=== PATIENT | female | born 1980 | race Caucasian/White ===

== ENCOUNTER → 2016-10-03 | Outpatient (CLI) | payer OTHER ==
--- NOTE | 2016-10-03 12:50 | MR ---
EXAMINATION TYPE: MR shoulder LT wo con DATE OF EXAM: 10/03/2016 12:04 PM COMPARISON: NONE HISTORY: RCT, left shoulder pain since injury on 06/16/16. TECHNIQUE: Multiplanar multispin echo imaging of the left shoulder was performed. FINDINGS: Rotator cuff : There is no complete or bursal/articular sided partial rotator cuff tear. The subscapu des constituent of the rotator cuff is intact. Mild heterogeneity of the supraspinatus tendon jero tible with chronic tendinopathy. Bursa: No bursal effusion or thickening is seen. Musculature: There is no muscular tear, contusion, or atrophy. Acromioclavicular joint : There are mild degenerative changes of the acromioclavicular joint. There is no anterior or lateral acromial downsloping. Osseous structures : There are no fractures or regions of abnormal bone marrow signal intensity. Long biceps tendon : The biceps tendon is normally situated within the bicipital groove. No complete or partial biceps tendon tear is present. Glenohumeral Joint fluid : There is no glenohumeral joint effusion. Cartilage and Bone : No focal hyaline cartilage defects are noted. No Hill-Sachs, reverse Hill-Sachs, or bony Bankart lesions are seen. Labrum : There are no SLAP or soft tissue Bankart lesions. No paralabral cysts are seen. OTHER FINDINGS : none IMPRESSION: 1. Mild chronic tendinopathy of the supraspinatus tendon.
== END | disposition home or self-care (01) ==
LOC: RADMRIMAIN 11:27
PROVIDERS: ATTEND Orthopaedic Surgery
DX: M75.82 Other shoulder lesions, left shoulder (principal)

== ENCOUNTER 2023-01-01 06:48 | Day surgery (SDC) | payer OTHER ==
[2023-01-01] MEDS ORDERED: LACTATED RINGERS 1,000 ML IV SCH (07:11)
[2023-01-01 07:24] VITALS: TEMP 97.7
[2023-01-01 07:29] LABS: Glucose,Whole Blood 263 mg/dL (70-110)
[2023-01-01] MEDS ORDERED: PROPOFOL 10 MG/ML 20 ML VIAL IV ONE (07:30)
[2023-01-01 07:52] VITALS: RESP 16
[2023-01-01 08:00] LABS: Glucose,Whole Blood 283 mg/dL (70-110)
[2023-01-01 08:14] VITALS: BP 119/68; PULSE 88
--- NOTE | 2023-01-01 08:24 | P.GSHP ---
History of Present Illness H&P Date: 01/01/23 CHIEF COMPLAINT: GERD HISTORY OF PRESENT ILLNESS: The patient is a 42-year-old female who presents reports gastroesophageal reflux disease. Upper endoscopy was offered for further evaluation and management. PAST MEDICAL HISTORY: Please see list. PAST SURGICAL HISTORY: Please see list. MEDICATIONS: Please see list. ALLERGIES: Please see list. SOCIAL HISTORY: No illicit drug use FAMILY HISTORY: No reports of Crohn disease or ulcerative colitis. REVIEW OF ORGAN SYSTEMS: CONSTITUTIONAL: No reports of fevers or chills. GI: Denies any blood in stools or constipation. PHYSICAL EXAM: VITAL SIGNS: Stable GENERAL: Well-developed and pleasant in no acute distress. HEENT: No scleral icterus. Extraocular movements grossly intact. Moist buccal mucosa. NECK: Supple without lymphadenopathy. CHEST: Unlabored respirations. Equal bilateral excursions. CARDIOVASCULAR: Regular rate and rhythm. Distal 2+ pulses. ABDOMEN: Soft, nondistended. MUSCULOSKELETAL: No clubbing, cyanosis, or edema. ASSESSMENT: 1. Gastroesophageal reflux disease PLAN: 1. Recommend proceeding with an upper endoscopy Past Medical History Past Medical History: Diabetes Mellitus, GERD/Reflux, Hypertension History of Any Multi-Drug Resistant Organisms: None Reported Past Surgical History: Section, Cholecystectomy, Hysterectomy Additional Past Surgical History / Comment(s): x 2 partial hysterectomy Past Anesthesia/Blood Transfusion Reactions: No Reported Reaction Smoking Status: Never smoker Medications and Allergies Home Medications Medication Instructions Recorded Confirmed Type Atorvastatin [Lipitor] 20 mg PO DAILY 10/25/22 12/26/22 History DULoxetine HCL [Cymbalta] 90 mg PO DAILY 10/25/22 12/26/22 History Empagliflozin [Jardiance] 25 mg PO DAILY 10/25/22 12/26/22 History Lisinopril-Hctz 20-25 mg 1 tab PO DAILY 10/25/22 12/26/22 History [Zestoretic 20-25] Omeprazole [PriLOSEC] 20 mg PO DAILY 10/25/22 12/26/22 History metFORMIN HCL 500 mg PO BID 10/25/22 12/26/22 History sitaGLIPtin [Januvia] 100 mg PO DAILY 10/25/22 12/26/22 History Liraglutide [Saxenda] 3 mg SQ DAILY 12/26/22 12/26/22 History Metoclopramide [Reglan] 10 mg PO ACHS #30 tab 04/17/23 Rx Allergies Allergy/AdvReac Type Severity Reaction Status Date / Time Penicillins Allergy Rash/Hives Verified 01/01/23 07:11 Surgical - Exam Vital Signs Temp Pulse Resp BP Pulse Ox 97.7 F 92 18 136/64 98 01/01/23 07:20 01/01/23 07:20 01/01/23 07:20 01/01/23 07:20 01/01/23 07:20 Results - Labs Abnormal Lab Results - Last 24 Hours (Table) 01/01/23 01/01/23 Range/Units 07:27 07:58 POC Glucose (mg/dL) 263 H 283 H (70-110) mg/dL
--- NOTE | 2023-01-01 08:26 | P.PCN ---
Date of Procedure: 01/01/23 Description of Procedure: PREOPERATIVE DIAGNOSIS: Gastroesophageal reflux disease. Morbid obesity. POSTOPERATIVE DIAGNOSIS: Gastroesophageal reflux disease. Morbid obesity. Gastritis. Gastroparesis OPERATION: Esophagogastroduodenoscopy with biopsies along antrum. SURGEON: Lakisha Houser MD ANESTHESIA: MAC. INDICATIONS: The patient is a 42-year-old female who presents with reflux disease. Benefits and risks of the procedure were described. Informed consent was obtained. DESCRIPTION: The patient was brought into the endoscopy suite and laid in the left lateral decubitus position. An Olympus gastroscope was passed along the posterior oropharynx down to the distal esophagus where the squamocolumnar junction was encountered at 37 cm from the incisors. The stomach was entered and no bile reflux was found. Additional findings are listed below. Biopsies with cold forceps were obtained of the antrum. The first through third portion of the duodenum was examined moderate food was identified throughout the stomach prohibiting view of the valve. The stomach was desufflated. The patient mitch ated the procedure well. FINDINGS: Squamocolumnar junction 37 cm from the incisors. Diaphragmatic hiatus at 38 cm. Hiatal hernia, 1 cm Hill grade -- lower esophageal valve, unable to obtain due to moderate food within the stomach Features of gastroparesis LA grade B erosive esophagitis. No active duodenitis. Chronic gastritis with biopsies obtained RECOMMENDATIONS: Upper endoscopy as needed. Gastroparesis in the presence of diabetes Reglan 10 mg 3 times daily Plan - Discharge Summary Discharge Rx Participant: No New Discharge Prescriptions: New Metoclopramide [Reglan] 10 mg PO ACHS #30 tab Continue sitaGLIPtin [Januvia] 100 mg PO DAILY Omeprazole [PriLOSEC] 20 mg PO DAILY DULoxetine HCL [Cymbalta] 90 mg PO DAILY Liraglutide [Saxenda] 3 mg SQ DAILY metFORMIN HCL 500 mg PO BID Lisinopril-Hctz 20-25 mg [Zestoretic 20-25] 1 tab PO DAILY Empagliflozin [Jardiance] 25 mg PO DAILY Atorvastatin [Lipitor] 20 mg PO DAILY Discharge Medication List Atorvastatin [Lipitor] 20 mg PO DAILY 10/25/22 [History] DULoxetine HCL [Cymbalta] 90 mg PO DAILY 10/25/22 [History] Empagliflozin [Jardiance] 25 mg PO DAILY 10/25/22 [History] Lisinopril-Hctz 20-25 mg [Zestoretic 20-25] 1 tab PO DAILY 10/25/22 [History] Omeprazole [PriLOSEC] 20 mg PO DAILY 10/25/22 [History] metFORMIN HCL 500 mg PO BID 10/25/22 [History] sitaGLIPtin [Januvia] 100 mg PO DAILY 10/25/22 [History] Liraglutide [Saxenda] 3 mg SQ DAILY 12/26/22 [History] Metoclopramide [Reglan] 10 mg PO ACHS #30 tab 01/01/23 [Rx] Follow up Appointment(s[facility] [place] [facility] - [facility] Patient Instructions/Handouts: *Surgery [facility] - (Anesthesia) Endoscopy Discharge Instructions, Gastroparesis (GEN) Discharge Disposition: HOME SELF-CARE
== END 2023-01-01 08:34 | disposition home or self-care (01) ==
LOC: ORWHC2ENDO 06:48
PROVIDERS: ATTEND Surgery Plastic and Reconstructive Surgery
DX: K21.9 Gastro-esophageal reflux disease without esophagitis (principal); K29.50 Unspecified chronic gastritis without bleeding; I10 Essential (primary) hypertension; E66.01 Morbid (severe) obesity due to excess calories; K31.84 Gastroparesis; K44.9 Diaphragmatic hernia without obstruction or gangrene; E11.9 Type 2 diabetes mellitus without complications; Z79.84 Long term (current) use of oral hypoglycemic drugs; Z79.899 Other long term (current) drug therapy; Z98.891 History of uterine scar from previous surgery; Z90.49 Acquired absence of other specified parts of digestive tract; Z90.710 Acquired absence of both cervix and uterus; Z88.0 Allergy status to penicillin; Z68.30 Body mass index [BMI] 30.0-30.9, adult
CPT/HCPCS: 88305; 43239; J2704

== ENCOUNTER → 2023-01-17 | Outpatient (CLI) | payer OTHER ==
[2023-01-17 14:13] LABS: INR 0.9 (<1.2); Partial Thromboplastin Time 24.8 sec (22.0-30.0); Prothrombin Time 9.7 sec (9.0-12.0)
[2023-01-17 20:03] LABS: HCT 44.2 % (37.2-46.3); HGB 14.8 g/dL (12.0-15.0); MCHC 33.5 g/dL (32.0-37.0); MCV 83.6 fL (80.0-97.0); Mean Platelet Volume 10.1 fL (9.5-12.2); NRBC Per 100 WBC 0 /100 WBCS (0.0-0.0); Platelet Count 383 X 10*3/uL (140-440); RBC 5.29 X 10*6/uL (4.10-5.20); RDW 13.2 % (11.5-14.5); WBC 11.03 X 10*3/uL (4.50-10.00)
[2023-01-17 20:48] LABS: % Iron Saturation 11.85 (12.00-45.00); ALT 23 U/L (8-44); AST 14 U/L (13-35); African American GFR (CKD) 78.4 (60.0-200.0); Albumin 4.6 g/dL (3.8-4.9); Albumin/Globulin Ratio 1.63 (1.60-3.17); Alkaline Phosphatase 138 U/L (41-126); BUN/Creat Ratio 15.05 Ratio (12.00-20.00); Blood Urea Nitrogen 15.2 mg/dL (9.0-27.0); Calcium 9.9 mg/dL (8.7-10.3); Carbon Dioxide 22.7 mmol/L (20.0-27.5); Chloride 95 mmol/L (96-109); Ferritin 51.6 ng/mL (10.0-291.0); Globulin 2.8 g/dL (1.6-3.3); Glucose 299 mg/dL (70-110); Iron 55 ug/dL (50-170); Magnesium 2.1 mg/dL (1.5-2.4); Non-African American GFR(CKD) 67.6 (60.0-200.0); Phosphorus 3.2 mg/dL (2.4-5.1); Potassium 3.8 mmol/L (3.5-5.5); Sodium 135 mmol/L (135-145); Total Iron Binding Capacity 463 ug/dL (228-460); Total Protein 7.3 g/dL (6.2-8.2)
[2023-01-17 23:10] LABS: Chol/HDL Ratio 4.26 Ratio; LDL Cholesterol,Calculated 79.4 mg/dL (0.0-131.0); Prealbumin 29.3 mg/dL (18.0-42.0)
[2023-01-18 02:47] LABS: Urine Alcohol Negative (Negative); Urine Barbiturate Negative (Negative); Urine Cocaine Negative (Negative); Urine Methadone Negative (Negative); Urine Opiates Negative (Negative); Urine Phencyclidine Negative (Negative)
[2023-01-19 07:26] LABS: Zinc, Serum 67 ug/dL (60-130)
== END | disposition home or self-care (01) ==
LOC: LABWHC1 12:18
PROVIDERS: ATTEND Surgery Plastic and Reconstructive Surgery
DX: E66.01 Morbid (severe) obesity due to excess calories (principal); D50.8 Other iron deficiency anemias; K91.2 Postsurgical malabsorption, not elsewhere classified; E89.1 Postprocedural hypoinsulinemia; E44.0 Moderate protein-calorie malnutrition; E44.1 Mild protein-calorie malnutrition; E45 Retarded development following protein-calorie malnutrition; E55.9 Vitamin D deficiency, unspecified; K74.1 Hepatic sclerosis; N19 Unspecified kidney failure; Z71.51 Drug abuse counseling and surveillance of drug abuser; T56.894A Toxic effect of other metals, undetermined, initial encounter; K50.90 Crohn's disease, unspecified, without complications
CPT/HCPCS: 84255; 84134; 84425; 80061; 80053; 82607; 82728; 82525; 82746; 83540; 83550; 83735; 84100; 84443; 84590; 84630; 85027; 85610; 85730; 82306; 80306; 83970; 83036; 93005; 36415; G0480; 80323

== ENCOUNTER → 2023-01-17 | Outpatient (CLI) | payer OTHER ==
[2023-01-17 13:55] VITALS: BP 122/82; PULSE 98; TEMP 98.1; BMI 43.6
--- NOTE | 2023-01-17 14:13 | P.BASOAP ---
Subjective Progress Note Date: 01/17/23 She is pending psych. She needs PCP letter. She is pending labs. Upper scope completed. Results reviewed. She has javier cruz. Objective - Vital Signs Vital signs: Vital Signs Temp 98.1 F 01/17/23 13:51 Pulse 98 01/17/23 13:51 Resp BP 122/82 01/17/23 13:51 Pulse Ox FiO2 Intake & Output 01/16/23 01/17/23 01/17/23 18:59 06:59 18:59 Weight 131.995 kg Assessment/Plan Plan: Date: 01/17/23 Initial Weight: Initial BMI: Current Weight: 131.995 kg Current BMI: 43.6 Type of Surgery: Total Volume in Band: Previous Volume: Volume Removed: Volume Added: Band Size:
== END ==
LOC: BARWHC3 13:21
PROVIDERS: ATTEND Surgery Plastic and Reconstructive Surgery
DX: E66.01 Morbid (severe) obesity due to excess calories (principal); Z68.41 Body mass index [BMI] 40.0-44.9, adult; Z88.0 Allergy status to penicillin; Z79.84 Long term (current) use of oral hypoglycemic drugs
CPT/HCPCS: 99211

== ENCOUNTER → 2024-01-28 | Outpatient (CLI) | payer OTHER ==
[2024-01-28 15:48] VITALS: BMI 41.9
== END ==
LOC: BARWHC3 12:59
PROVIDERS: ATTEND Surgery Plastic and Reconstructive Surgery
DX: E66.01 Morbid (severe) obesity due to excess calories (principal); Z71.3 Dietary counseling and surveillance; Z68.41 Body mass index [BMI] 40.0-44.9, adult; Z88.0 Allergy status to penicillin
CPT/HCPCS: 97804

== ENCOUNTER → 2024-02-06 | Outpatient (CLI) | payer OTHER ==
[2024-02-06 15:32] VITALS: BP 103/69; PULSE 91; RESP 16; TEMP 98.1; BMI 41.6
--- NOTE | 2024-02-06 15:34 | P.HPBAR ---
Bariatric H&P - History & Physicial H&P Date: 02/06/24 History & Physicial: Visit/CC: PRE? Patient initial contact: Initial weight: 129.983 kg Initial weight in pounds: 286.56 Height: 5 ft 8.5 in Initial BMI: 42.9 Last weight: Current weight: 126.099 kg Current weight in pounds: 278.00 Current BMI: 41.6 [place] body weight (based on NIH guidelines): 64.637 kg Excess body weight loss: 5.9% The patient is a 44 year-old F who presents for Bariatric Assessment. DATE OF SERVICE: 02/06/24 REASON FOR CONSULTATION: Morbid obesity HISTORY OF PRESENT ILLNESS: Nu Garcia is a 44-year-old female who comes with lifelong morbid obesity. She comes in looking into the sleeve gastrectomy. She is continuing with her weight loss journey. Diabetes is poorly controlled. She presents with a Hgb A1c is 9.3%. She was on saxenda for weight loss only. She is Januvia, Jardiance and Metformin still with blood sugar glucose very high. She takes insulin as well. She is pending management with resistor coater for her glycemic control. At height of 5 feet 8.5 inches, her ideal body weight is 163 pounds. She comes in 278 pounds. Her body mass index is 41.7. She is 115 pounds overweight. PAST MEDICAL HISTORY: 1. Morbid obesity due to excess calories 2. Body mass index of 41.7 3. Diabetes type 2, insulin-dependent 4. Cervical cancer 5. Gastroesophageal reflux disease 6. Hypertensive heart disease 7. Hyperlipidemia 8. Depressive disorder 9. Generalized anxiety disorder PAST SURGICAL HISTORY: 1. section 2. Hysterectomy 3. Cholecystectomy HOME MEDICATIONS: Home Medications Medication Instructions Recorded Confirmed Atorvastatin [Lipitor] 20 mg PO DAILY 10/25/22 03/19/24 DULoxetine HCL [Cymbalta] 90 mg PO DAILY 10/25/22 03/19/24 Lisinopril-Hctz 20-25 mg 1 tab PO DAILY 10/25/22 03/19/24 [Zestoretic 20-25] Omeprazole [PriLOSEC] 20 mg PO DAILY 10/25/22 03/19/24 metFORMIN HCL 500 mg PO BID 10/25/22 03/19/24 sitaGLIPtin [Januvia] 100 mg PO DAILY 10/25/22 03/19/24 ALPRAZolam [Xanax] 0.25 mg PO BID PRN 01/17/23 03/19/24 Cyclobenzaprine [Flexeril] 5 mg PO TID PRN 01/17/23 03/19/24 Insulin Glargine,Hum.rec.anlog 26 unit SQ HS 02/07/24 03/19/24 [Lantus Solostar Pen] Empagliflozin [Jardiance] 25 mg PO DAILY 02/26/24 03/19/24 Phentermine HCl 37.5 mg PO DAILY 02/26/24 03/19/24 cloNIDine HCL [Catapres] 0.1 mg PO DAILY PRN 02/26/24 03/19/24 ALLERGIES: Allergies Allergy/AdvReac Type Severity Reaction Status Date / Time Penicillins Allergy Rash/Hives Verified 03/19/24 16:26 SOCIAL HISTORY: Denies past tobacco use. FAMILY HISTORY: No family history of ulcerative colitis disease or Crohn's disease. Family history of morbid obesity. No lupus in the family. No reports of stomach or esophageal cancer. Has family history of deep venous thrombosis. REVIEW OF ORGAN SYSTEMS: CONSTITUTIONAL: At height of 5 feet 8.5 inches, her ideal body weight is 163 pounds. She comes in 278 pounds. Her body mass index is 41.7. She is 115 pounds overweight. HEENT: Denies any active troubles with vision or hearing. ENDOCRINE: Has diabetes. No hypothyroidism. CARDIOVASCULAR: Past reports of palpitations or heart attacks or chest pain. Has hypertensive heart disease. RESPIRATORY: Has daytime somnolence. Has asthma. Has chronic obstructive pulmonary disease. GASTROINTESTINAL: Denies any bright red blood per rectum. No diarrhea. No constipation. Has gastroesophageal reflux disease. GENITOURINARY: Has bladder urgency. No recent blood in urine. Past history of cervical cancer. MUSCULOSKELETAL: Has lower back pain and joint pain. Has osteoarthritis of the knees. History of bilateral lower extremity edema. NEURO: No headaches. No seizure disorders. Has neuropathy. PSYCH: Has depression. No suicidal ideation. Has generalized anxiety disorder. RHEUMATOLOGIC: No lupus. No rheumatoid arthritis. HEMATOLOGIC: Denies any abnormal bleeding or bruising. SKIN: No rash. No skin cancer. PHYSICAL EXAM: VITAL SIGNS: Height 5 foot 8.5 inches, weight 278 pounds. BMI 41.7 Vital Signs Temp 98.1 F 02/06/24 14:53 Pulse 91 02/06/24 14:53 Resp 16 02/06/24 14:53 BP 103/69 02/06/24 14:53 Pulse Ox FiO2 GENERAL: Well-developed in no acute distress. HEENT: No scleral icterus. Extraocular movements grossly intact. Hears conversational speech. No nasal drainage. NECK: Supple without lymphadenopathy. CHEST: Nonlabored respirations with equal bilateral excursions. CARDIOVASCULAR: Regular rate and regular rhythm. Distal 2+ pulses. ABDOMEN: Obese, soft, nontender, nondistended. MUSCULOSKELETAL: No clubbing, cyanosis. Gross strength 5/5 distal lower extremities. NEURO: No focal or lateralizing signs. Cranial nerves 2 through 12 grossly within normal limits. PSYCH: Appropriate affect. Alert and oriented to person, place and time. SKIN: Good skin turgor. Well perfused. ASSESSMENT: 1. Morbid obesity due to excess calories 2. Body mass index of 41.7 3. Diabetes type 2, insulin-dependent 4. Cervical cancer 5. Gastroesophageal reflux disease 6. Hypertensive heart disease 7. Hyperlipidemia 8. Depressive disorder 9. Generalized anxiety disorder PLAN: 1. Surgical options including a band, gastric bypass, sleeve gastrectomy were described in detail. 2. Recommend management with resistor coater for blood sugar glucose control. 3. Recommend a bariatric metabolic panel to evaluate for micro- including macronutrient deficiencies. 4. For history of daytime somnolence, recommend evaluation and treatment for sleep apnea. 5. Dietary surveillance and counseling was reviewed. Increased protein intake over 65 grams daily advised. 6. Will need cardiac risk assessment. 7. Recommend medical risk assessment. 8. Psych assessment per insurance guidelines. 9. Recommend upper endoscopy. 10. Recommend 12-lead EKG. 11. Will need blood sugar glucose and hemoglobin A1c less than 7.1% Thank you for this consultation. Past Medical History Past Medical History: Diabetes Mellitus, GERD/Reflux, Hypertension History of Any Multi-Drug Resistant Organisms: None Reported Past Surgical History: Section, Cholecystectomy, Hysterectomy Additional Past Surgical History / Comment(s): x 2 partial hysterectomy Past Anesthesia/Blood Transfusion Reactions: No Reported Reaction Past Psychological History: Anxiety, Bipolar, PTSD Smoking Status: Never smoker Past Alcohol Use History: Rare Past Drug Use History: None Reported Surgical - Exam Vital Signs Temp Pulse Resp BP 98.1 F 91 16 103/69 02/06/24 14:53 02/06/24 14:53 02/06/24 14:53 02/06/24 14:53 Results - Labs 02/06/24 16:00 02/06/24 16:00 Bariatric Checklist Checklist: Plan: Checklist: EGD: 1. Hiatal hernia: 2. H. Pylori: HgbA1c: Vitamin D: Smoking: Primary care physician referral: Dr. Steele Psychiatry clearance: Cardiology clearance: Sleep study: Diet journal: VTE risk score: VTE risk level: Rehab needs at discharge:
[2024-02-06 16:50] LABS: INR 0.9 (<1.2); Partial Thromboplastin Time 26.7 sec (22.0-30.0); Prothrombin Time 10.2 sec (10.0-12.5)
[2024-02-07 02:02] LABS: HCT 43.4 % (37.2-46.3); MCH 28.3 pg (27.0-32.0); MCHC 32.3 g/dL (32.0-37.0); MCV 87.7 FL (80.0-97.0); Mean Platelet Volume 10.3 FL (9.5-12.2); NRBC Per 100 WBC 0 X 10*3/uL (0.00-0.01); Platelet Count 482 X 10*3/uL (140-440); RBC 4.95 X 10*6/uL (4.10-5.20); RDW 12.9 % (11.5-14.5)
[2024-02-07 02:19] LABS: Prealbumin 25.3 mg/dL (18.0-42.0)
[2024-02-07 03:28] LABS: Chol/HDL Ratio 4.64 Ratio; Magnesium 2.2 mg/dL (1.5-2.4); Phosphorus 4.1 mg/dL (2.4-5.1)
[2024-02-07 03:29] LABS: % Iron Saturation 8.63 (12.00-45.00); ALT 20 U/L (8-44); AST 13 U/L (13-35); Albumin 4.6 g/dL (3.8-4.9); Albumin/Globulin Ratio 1.64 Ratio (1.60-3.17); Alkaline Phosphatase 133 U/L (41-126); Blood Urea Nitrogen 13.2 mg/dL (9.0-27.0); Calcium 10.2 mg/dL (8.7-10.3); Carbon Dioxide 23.8 mmol/L (21.6-31.8); Chloride 96 mmol/L (96-109); Ferritin 56.8 ng/mL (10.0-291.0); Globulin 2.8 g/dL (1.6-3.3); Glucose 139 mg/dL (70-110); Iron 36 UG/DL (50-170); LDL Cholesterol,Calculated 84.2 mg/dL (0.0-131.0); Potassium 3.8 mmol/L (3.5-5.5); Sodium 135 mmol/L (135-145); Total Bilirubin 0.5 mg/dL (0.3-1.2); Total Iron Binding Capacity 417 UG/DL (228-460); Total Protein 7.4 g/dL (6.2-8.2)
[2024-02-07 14:57] LABS: Zinc, Serum 90 ug/dL (60-130)
[2024-02-08 10:09] LABS: Vitamin A 70 ug/dL (38-106)
[2024-02-08 10:16] LABS: Vit B1(Thiamine) 74 ug/L (38-122)
[2024-02-10 08:21] LABS: Selenium 142 mcg/L (63-160)
[2024-02-12 06:25] LABS: Anabasine Urine <2.0 ng/mL (<2.0)
== END ==
LOC: BARWHC3 14:29
PROVIDERS: ATTEND Surgery Plastic and Reconstructive Surgery
DX: E66.01 Morbid (severe) obesity due to excess calories (principal); K90.89 Other intestinal malabsorption; D50.8 Other iron deficiency anemias; E55.9 Vitamin D deficiency, unspecified; K74.1 Hepatic sclerosis; N19 Unspecified kidney failure; T56.894A Toxic effect of other metals, undetermined, initial encounter; K50.90 Crohn's disease, unspecified, without complications; E11.65 Type 2 diabetes mellitus with hyperglycemia; K21.9 Gastro-esophageal reflux disease without esophagitis; I11.9 Hypertensive heart disease without heart failure; F32.A Depression, unspecified; E78.5 Hyperlipidemia, unspecified; F41.1 Generalized anxiety disorder; C53.9 Malignant neoplasm of cervix uteri, unspecified; Z79.4 Long term (current) use of insulin; Z79.84 Long term (current) use of oral hypoglycemic drugs; Z79.85 Long-term (current) use of injectable non-insulin antidiabetic drugs; Z68.41 Body mass index [BMI] 40.0-44.9, adult; Z79.899 Other long term (current) drug therapy; Z88.0 Allergy status to penicillin
CPT/HCPCS: 84255; 84134; 84425; 80061; 80053; 82607; 82728; 82525; 82746; 83540; 83550; 83735; 84100; 84443; 84590; 84630; 85027; 85610; 85730; 82306; 83970; 80307; 93005; G0480; G0463; 80323; 99211

== ENCOUNTER 2024-03-03 06:33 | Day surgery (SDC) | payer OTHER ==
[2024-03-03] MEDS: IV FLUID CONTINUATION 1,000 ML IV ONE (07:28)
[2024-03-03 07:30] LABS: Glucose,Whole Blood 169 mg/dL (70-110)
[2024-03-03] MEDS: LACTATED RINGERS 1,000 ML IV SCH (07:34)
[2024-03-03] MEDS ORDERED: PROPOFOL 10 MG/ML 20 ML VIAL IV ONE (07:35)
--- NOTE | 2024-03-03 07:36 | P.GSHP ---
History of Present Illness H&P Date: 03/03/24 CHIEF COMPLAINT: GERD HISTORY OF PRESENT ILLNESS: The patient is a 44-year-old female who presents reports gastroesophageal reflux disease. Upper endoscopy was offered for further evaluation and management. PAST MEDICAL HISTORY: Please see list. PAST SURGICAL HISTORY: Please see list. MEDICATIONS: Please see list. ALLERGIES: Please see list. SOCIAL HISTORY: No illicit drug use FAMILY HISTORY: No reports of Crohn disease or ulcerative colitis. REVIEW OF ORGAN SYSTEMS: CONSTITUTIONAL: No reports of fevers or chills. GI: Denies any blood in stools or constipation. PHYSICAL EXAM: VITAL SIGNS: Stable GENERAL: Well-developed and pleasant in no acute distress. HEENT: No scleral icterus. Extraocular movements grossly intact. Moist buccal mucosa. NECK: Supple without lymphadenopathy. CHEST: Unlabored respirations. Equal bilateral excursions. CARDIOVASCULAR: Regular rate and rhythm. Distal 2+ pulses. ABDOMEN: Soft, nondistended. MUSCULOSKELETAL: No clubbing, cyanosis, or edema. ASSESSMENT: 1. Gastroesophageal reflux disease PLAN: 1. Recommend proceeding with an upper endoscopy Past Medical History Past Medical History: Cancer, Diabetes Mellitus, GERD/Reflux, Hypertension Additional Past Medical History / Comment(s): cervical cancer History of Any Multi-Drug Resistant Organisms: None Reported Past Surgical History: Section, Cholecystectomy, Hysterectomy Additional Past Surgical History / Comment(s): x 2 partial hysterectomy Past Anesthesia/Blood Transfusion Reactions: No Reported Reaction Smoking Status: Never smoker - Past Family History Mother Family Medical History: Deep Vein Thrombosis (DVT) Medications and Allergies Home Medications Medication Instructions Recorded Confirmed Type Atorvastatin [Lipitor] 20 mg PO DAILY 10/25/22 02/26/24 History DULoxetine HCL [Cymbalta] 90 mg PO DAILY 10/25/22 03/03/24 History Empagliflozin [Jardiance] 25 mg PO DAILY 10/25/22 02/26/24 History Lisinopril-Hctz 20-25 mg 1 tab PO DAILY 10/25/22 02/26/24 History [Zestoretic 20-25] Omeprazole [PriLOSEC] 20 mg PO DAILY 10/25/22 02/26/24 History metFORMIN HCL 500 mg PO BID 10/25/22 03/03/24 History sitaGLIPtin [Januvia] 100 mg PO DAILY 10/25/22 02/26/24 History ALPRAZolam [Xanax] 0.25 mg PO BID PRN 01/17/23 02/26/24 History Cyclobenzaprine [Flexeril] 5 mg PO TID PRN 01/17/23 02/26/24 History Insulin Glargine,Hum.rec.anlog 26 unit SQ HS 02/07/24 02/26/24 History [Lantus Solostar Pen] Empagliflozin [Jardiance] 25 mg PO DAILY 02/26/24 02/26/24 History Phentermine HCl 37.5 mg PO DAILY 02/26/24 02/26/24 History cloNIDine HCL [Catapres] 0.1 mg PO DAILY PRN 02/26/24 02/26/24 History Allergies Allergy/AdvReac Type Severity Reaction Status Date / Time Penicillins Allergy Rash/Hives Verified 03/03/24 07:30 Results - Labs Abnormal Lab Results - Last 24 Hours (Table) 03/03/24 Range/Units 07:26 POC Glucose (mg/dL) 169 H (70-110) mg/dL
[2024-03-03 07:39] VITALS: TEMP 98
--- NOTE | 2024-03-03 07:51 | P.PCN ---
Date of Procedure: 03/03/24 Description of Procedure: PREOPERATIVE DIAGNOSIS: Gastroesophageal reflux disease. Morbid obesity. POSTOPERATIVE DIAGNOSIS: Gastroesophageal reflux disease. Morbid obesity. Gastritis. OPERATION: Esophagogastroduodenoscopy with biopsies along esophagus, antrum and duodenum SURGEON: Lakisha Houser MD ANESTHESIA: MAC. INDICATIONS: The patient is a 44-year-old female who presents with reflux disease. Benefits and risks of the procedure were described. Informed consent was obtained. DESCRIPTION: The patient was brought into the endoscopy suite and laid in the left lateral decubitus position. An Olympus gastroscope was passed along the posterior oropharynx down to the distal esophagus where the squamocolumnar junction was encountered at 37 cm from the incisors. The stomach was entered and no bile reflux was found. Additional findings are listed below. Biopsies with cold forceps were obtained of the antrum. The first through third portion of the duodenum was examined. Retroflexion of the scope confirmed Hill grade 2 lower esophageal valve. The squamocolumnar junction demonstrated LA grade B erosive esophagitis. The stomach was desufflated. The patient tolerated the procedure well. FINDINGS: Squamocolumnar junction 37 cm from the incisors. Diaphragmatic hiatus at 37 cm. Hill grade 2 lower esophageal valve. LA grade B erosive esophagitis. Biopsies obtained Biopsies obtained of the duodenum. Chronic gastritis with biopsies obtained. RECOMMENDATIONS: Upper endoscopy as needed. Plan - Discharge Summary Discharge Rx Participant: No New Discharge Prescriptions: Continue sitaGLIPtin [Januvia] 100 mg PO DAILY Omeprazole [PriLOSEC] 20 mg PO DAILY DULoxetine HCL [Cymbalta] 90 mg PO DAILY ALPRAZolam [Xanax] 0.25 mg PO BID PRN PRN Reason: Anxiety Insulin Glargine,Hum.rec.anlog [Lantus Solostar Pen] 26 unit SQ HS cloNIDine HCL [Catapres] 0.1 mg PO DAILY PRN PRN Reason: Anxiety Empagliflozin [Jardiance] 25 mg PO DAILY metFORMIN HCL 500 mg PO BID Lisinopril-Hctz 20-25 mg [Zestoretic 20-25] 1 tab PO DAILY Empagliflozin [Jardiance] 25 mg PO DAILY Atorvastatin [Lipitor] 20 mg PO DAILY Cyclobenzaprine [Flexeril] 5 mg PO TID PRN PRN Reason: Pain Phentermine HCl 37.5 mg PO DAILY Discharge Medication List Atorvastatin [Lipitor] 20 mg PO DAILY 10/25/22 [History] DULoxetine HCL [Cymbalta] 90 mg PO DAILY 10/25/22 [History] Empagliflozin [Jardiance] 25 mg PO DAILY 10/25/22 [History] Lisinopril-Hctz 20-25 mg [Zestoretic 20-25] 1 tab PO DAILY 10/25/22 [History] Omeprazole [PriLOSEC] 20 mg PO DAILY 10/25/22 [History] metFORMIN HCL 500 mg PO BID 10/25/22 [History] sitaGLIPtin [Januvia] 100 mg PO DAILY 10/25/22 [History] ALPRAZolam [Xanax] 0.25 mg PO BID PRN 01/17/23 [History] Cyclobenzaprine [Flexeril] 5 mg PO TID PRN 01/17/23 [History] Insulin Glargine,Hum.rec.anlog [Lantus Solostar Pen] 26 unit SQ HS 02/07/24 [History] Empagliflozin [Jardiance] 25 mg PO DAILY 02/26/24 [History] Phentermine HCl 37.5 mg PO DAILY 02/26/24 [History] cloNIDine HCL [Catapres] 0.1 mg PO DAILY PRN 02/26/24 [History] Follow up Appointment(s)/Ref[facility](s[facility] [place] [facility] - 03/19/24 Patient Instructions/Handouts: GERD (Gastroesophageal Reflux Disease) (ED), Gastritis (DC) Discharge Disposition: HOME SELF-CARE
[2024-03-03 07:55] VITALS: RESP 16
[2024-03-03 08:16] VITALS: BP 97/67; PULSE 90
== END 2024-03-03 08:47 | disposition home or self-care (01) ==
LOC: ORWHC2ENDO 06:33
PROVIDERS: ATTEND Surgery Plastic and Reconstructive Surgery
DX: K29.50 Unspecified chronic gastritis without bleeding (principal); K21.9 Gastro-esophageal reflux disease without esophagitis; I10 Essential (primary) hypertension; E66.01 Morbid (severe) obesity due to excess calories; E11.9 Type 2 diabetes mellitus without complications; Z79.84 Long term (current) use of oral hypoglycemic drugs; Z79.899 Other long term (current) drug therapy; Z85.41 Personal history of malignant neoplasm of cervix uteri; Z88.0 Allergy status to penicillin; Z90.49 Acquired absence of other specified parts of digestive tract; Z90.710 Acquired absence of both cervix and uterus
CPT/HCPCS: 88305; 43239; J2704

== ENCOUNTER → 2024-06-11 | Outpatient (CLI) | payer OTHER ==
[2024-06-11 15:30] VITALS: BP 111/72; PULSE 73; RESP 16; TEMP 98.7; BMI 41.2
--- NOTE | 2024-06-16 07:32 | P.BASOAP ---
Subjective Progress Note Date: 06/16/24 She only lost 2 pounds in 2 months. Consent for sleeve. High risk of incomplete surgery. Plan for alternative. Objective - Vital Signs Vital signs: Vital Signs Temp 98.7 F 06/11/24 15:23 Pulse 73 06/11/24 15:23 Resp 16 06/11/24 15:23 BP 111/72 06/11/24 15:23 Pulse Ox FiO2 Assessment/Plan Plan: Date: 06/11/24 Initial Weight: 129.983 kg Initial BMI: 42.9 Current Weight: 124.738 kg Current BMI: 41.2 Type of Surgery: Total Volume in Band: Previous Volume: Volume Removed: Volume Added: Band Size:
== END ==
LOC: BARWHC3 14:41
PROVIDERS: ATTEND Surgery Plastic and Reconstructive Surgery
DX: E66.01 Morbid (severe) obesity due to excess calories (principal); Z68.41 Body mass index [BMI] 40.0-44.9, adult; Z88.0 Allergy status to penicillin
CPT/HCPCS: 99211

== ENCOUNTER → 2024-06-11 | Outpatient (CLI) | payer OTHER ==
[2024-06-12 02:23] LABS: Basophils # (A) 0.05 X 10*3/uL (0.00-0.10); Basophils % (A) 0.5 %; Eosinophils # (A) 0.05 X 10*3/uL (0.04-0.35); Eosinophils % (A) 0.5 %; HGB 13.2 g/dL (12.0-15.0); Lymphocytes # (A) 1.88 X 10*3/uL (0.90-5.00); Lymphocytes % (A) 17.6 %; MCH 26.4 pg (27.0-32.0); MCHC 31.4 g/dL (32.0-37.0); Mean Platelet Volume 10.3 FL (9.5-12.2); Monocytes # (A) 0.55 X 10*3/uL (0.20-1.00); Monocytes % (A) 5.2 %; NRBC Per 100 WBC 0 X 10*3/uL (0.00-0.01); Neutrophils % (A) 75.8 %; Platelet Count 413 X 10*3/uL (140-440); RDW 14.1 % (11.5-14.5); WBC 10.67 X 10*3/uL (4.50-10.00)
== END | disposition home or self-care (01) ==
LOC: LABPAT 16:16
PROVIDERS: ATTEND Surgery Plastic and Reconstructive Surgery
DX: Z01.818 Encounter for other preprocedural examination (principal)
CPT/HCPCS: 85025; 86850; 86900; 86901

== ENCOUNTER 2024-06-16 07:45 | Inpatient (IN) | payer OTHER ==
--- NOTE | 2024-06-11 15:58 | P.BASOAP ---
Subjective Progress Note Date: 06/11/24 She only lost 2 pounds in 2 months. Consent for sleeve. High risk of incomplete surgery. Plan for alternative. Assessment/Plan Plan: Date: Initial Weight: 129.983 kg Initial BMI: Current Weight: 123.377 kg Current BMI: Type of Surgery: Total Volume in Band: Previous Volume: Volume Removed: Volume Added: Band Size:
[2024-06-16] MEDS ORDERED: ONDANSETRON 4 MG/2 ML VIAL IVP PRN (08:12)
[2024-06-16] MEDS ORDERED: LIDOCAINE 1% (10MG/ML) FOR IV START INTRADERMA PRN (08:12)
--- NOTE | 2024-06-16 08:37 | P.GSHP ---
History of Present Illness H&P Date: 06/16/24 CHIEF COMPLAINT: Morbid obesity HISTORY OF PRESENT ILLNESS: Marcio Garcia is a 44-year-old female who comes with lifelong morbid obesity. As result of morbid obesity, she has developed insulin-dependent diabetes type 2, hypertensive heart disease, obstructive sleep apnea, hyperlipidemia, osteoarthritis of the hips and knees. She has completed medical supervised weight loss. She completed medical including cardiac assessment. She has completed psychological risk assessment. All surgical opt ions were reviewed. She elected for gastric bypass. At height of 5 feet 8 inches, her ideal body weight is 163 pounds. She comes in 220 pounds. Her body mass index is 41.1. She is 109 pounds overweight. PAST MEDICAL HISTORY: 1. Morbid obesity due to excess calories 2. Body mass index of 41.4 3. Osteoarthritis of the knees. 4. Osteoarthritis of the lower back. 5. Hypertensive heart disease. 6. Gastroesophageal reflux disease 7. Hyperlipidemia 8. Obstructive sleep apnea 9. Diabetes type 2, insulin dependent 10. Depressive disorder PAST SURGICAL HISTORY: 1. Cholecystectomy 2. Hysterectomy 3. Lysis of adhesions 4. Bilateral carpal tunnel release 5. Colonoscopy 6. Upper endoscopy HOME MEDICATIONS: See list ALLERGIES: See list SOCIAL HISTORY: Past tobacco use. FAMILY HISTORY: No family history of ulcerative colitis disease or Crohn's disease. Family history of morbid obesity. No lupus in the family. No reports of stomach or esophageal cancer. REVIEW OF ORGAN SYSTEMS: CONSTITUTIONAL: At height of 5 feet 8 inches, her ideal body weight is 163 pounds. She comes in 220 pounds. Her body mass index is 41.1. She is 109 pounds overweight. HEENT: Denies any active troubles with vision or hearing. ENDOCRINE: Has diabetes. Denies hypothyroidism. CARDIOVASCULAR: Past reports of palpitations or heart attacks or chest pain. RESPIRATORY: Has daytime somnolence. GASTROINTESTINAL: Denies any bright red blood per rectum. Has gastroesophageal reflux disease. MUSCULOSKELETAL: Has lower back pain and joint pain. Has osteoarthritis of the knees. NEURO: No headaches. No seizure disorders. PSYCH: Has depression. No suicidal ideation. RHEUMATOLOGIC: No lupus. No rheumatoid arthritis. HEMATOLOGIC: Denies any abnormal bleeding or bruising. No personal history of DVTs. SKIN: Has rash. No skin cancer. PHYSICAL EXAM: VITAL SIGNS: Height 5 foot 8 inches, weight 272 pounds. BMI 41.4 GENERAL: Well-developed in no acute distress. HEENT: No scleral icterus. Extraocular movements grossly intact. Hears conversational speech. No nasal drainage. NECK: Supple without lymphadenopathy. CHEST: Nonlabored respirations with equal bilateral excursions. CARDIOVASCULAR: Regular rate and regular rhythm. Distal 2+ pulses. ABDOMEN: Obese, soft, nontender, nondistended. MUSCULOSKELETAL: No clubbing, cyanosis. NEURO: No focal or lateralizing signs. Cranial nerves 2 through 12 grossly within normal limits. PSYCH: Appropriate affect. Alert and oriented to person, place and time. SKIN: Good skin turgor. Well perfused. ASSESSMENT: 1. Morbid obesity due to excess calories 2. Body mass index of 41.4 3. Osteoarthritis of the knees. 4. Osteoarthritis of the lower back. 5. Hypertensive heart disease. 6. Gastroesophageal reflux disease 7. Hyperlipidemia 8. Obstructive sleep apnea 9. Diabetes type 2, insulin dependent 10. Depressive disorder PLAN: 1. Bariatric options between a sleeve, band and a Harman-en-Y gastric bypass were reviewed in detail. The patient elected for a sleeve gastrectomy. Robotic assisted approach described. 2. The [place] [facility] Data was also reviewed with benefits and risks as described. 3. An 8 page second-generation bariatric consent form was reviewed in detail including potential of bleeding, infection, leaks, adequate weight loss, nutritional deficiencies which the patient demonstrated understanding of the risks. 4. A 2 week high-protein low caloric 800 kcal diet described to address hepatomegaly. 5. Preoperative labs including complete metabolic panel and CBC with type and screen recommended. 6. DVT prophylaxis per [place] [facility]. 7. Antibiotic prophylaxis. 8. Inpatient hospitalization anticipated for more than 2 nights. 9. All questions and concerns were addressed with the patient. 10. She is at elevated risk for perioperative complications secondary to pre- existing diabetes type 2, obstructive sleep apnea, pre-existing coronary artery disease. 11. Overall, patient has expressed understanding of bariatric care including postoperative diet and commitment of lifestyle. Patient should benefit from surgical intervention for correction of her morbid obesity. 12. Patient advised to hit targeted weight loss of 5% of 284 pounds to 260 pounds/14 pound weight loss otherwise high risk for cancellation of her procedure discussed in detail. Past Medical History Past Medical History: Cancer, Diabetes Mellitus, GERD/Reflux, Hypertension Additional Past Medical History / Comment(s): cervical cancer History of Any Multi-Drug Resistant Organisms: None Reported Past Surgical History: Section, Cholecystectomy, Hysterectomy Additional Past Surgical History / Comment(s): x 2 partial hysterectomy Past Anesthesia/Blood Transfusion Reactions: No Reported Reaction Past Psychological History: Anxiety, Bipolar, PTSD Smoking Status: Never smoker Past Alcohol Use History: Rare Past Drug Use History: None Reported - Past Family History Mother Family Medical History: Deep Vein Thrombosis (DVT) Medications and Allergies Home Medications Medication Instructions Recorded Confirmed Type Atorvastatin [Lipitor] 20 mg PO DAILY 10/25/22 06/11/24 History DULoxetine HCL [Cymbalta] 90 mg PO DAILY 10/25/22 06/11/24 History Omeprazole [PriLOSEC] 20 mg PO DAILY 10/25/22 06/11/24 History metFORMIN HCL 500 mg PO BID 10/25/22 06/11/24 History sitaGLIPtin [Januvia] 100 mg PO DAILY 10/25/22 06/11/24 History ALPRAZolam [Xanax] 0.25 mg PO BID PRN 01/17/23 06/11/24 History Cyclobenzaprine [Flexeril] 5 mg PO TID PRN 01/17/23 06/11/24 History Insulin Glargine,Hum.rec.anlog 50 unit SQ HS 02/07/24 06/11/24 History [Lantus Solostar Pen] Empagliflozin [Jardiance] 25 mg PO DAILY 02/26/24 06/11/24 History cloNIDine HCL [Catapres] 0.1 mg PO DAILY PRN 02/26/24 06/11/24 History Lisinopril-Hctz 10-12.5 mg 1 tab PO DAILY 06/11/24 06/11/24 History [Zestoretic 10-12.5] Allergies Allergy/AdvReac Type Severity Reaction Status Date / Time Penicillins Allergy Rash/Hives Verified 03/19/24 16:26
[2024-06-16 09:46] LABS: Glucose,Whole Blood 98 mg/dL (70-110)
[2024-06-16] MEDS: ONDANSETRON 4 MG/2 ML VIAL IVP PRN (09:46)
[2024-06-16] MEDS: DEXAMETHASONE SOD PHOSPHATE 4 MG/ML 1 ML VIAL IV ONE (09:46)
[2024-06-16] MEDS: SCOPOLAMINE 1 MG/72 HR PATCH TRANSDERM ONE (09:46)
[2024-06-16] MEDS: LACTATED RINGERS 1,000 ML IV SCH (09:47)
[2024-06-16] MEDS: ACETAMINOPHEN TAB 500 MG TAB PO PRN (09:48)
[2024-06-16] MEDS: ALVIMOPAN 12 MG CAPSULE PO PRN (09:48)
[2024-06-16] MEDS: CHLORHEXIDINE GLUCONATE 15 ML CUP MUCOUS MEM STA (09:49)
[2024-06-16] MEDS: ENOXAPARIN 40 MG/0.4 ML SYRINGE SQ PRN (09:49)
[2024-06-16] MEDS: PANTOPRAZOLE 40 MG/10 ML VIAL IVP STA (09:49)
[2024-06-16] MEDS: IV FLUID CONTINUATION 1,000 ML IV ONE ×2 (10:04→15:43)
--- NOTE | 2024-06-16 11:19 | P.HPADDEND ---
H&P Addendum H&P Addendum Date: 06/16/24 Patient reports strict adherence to 2-week protein diet especially in the last 1 week. She also reports her blood sugars have been low 99. Patient discussed risk of incomplete procedure due to hepatomegaly. Patient willing to proceed with possibility of aborting procedure and rescheduling in over 30 days.
[2024-06-16] MEDS ORDERED: LIDOCAINE 1% INJ 10MG/ML (20 ML MDV) ONE (13:11)
[2024-06-16] MEDS ORDERED: fentaNYL (PF) 50 MCG/ML 2 ML AMP ONE (13:11)
[2024-06-16] MEDS ORDERED: PROPOFOL 10 MG/ML 20 ML VIAL IV ONE (13:11)
[2024-06-16] MEDS ORDERED: ROCURONIUM 10 MG/ML (5 ML VIAL) IV ONE (13:11)
[2024-06-16] MEDS ORDERED: HYDROmorphone (PF) 1 MG/ML ONE (13:11)
[2024-06-16] MEDS ORDERED: MIDAZOLAM 2 MG/2 ML VIAL ONE (13:11)
[2024-06-16] MEDS ORDERED: NEOSTIGMINE 1 MG/ML 10 ML VIAL ONE (13:11)
[2024-06-16] MEDS ORDERED: GLYCOPYRROLATE 0.2 MG/ML 2 ML VIAL ONE (13:11)
[2024-06-16] MEDS ORDERED: SUCCINYLCHOLINE CHLORIDE 200 MG/10 ML VIAL IV ONE (13:11)
[2024-06-16] MEDS: ceFAZolin 3 GM in SODIUM CHLORIDE 0.9% 100 ML IVPB PRN (13:11)
[2024-06-16] MEDS: LIDOCAINE 1%-EPI 1:100,000 20 ML VIAL SQ ONE (13:32)
[2024-06-16 14:50] VITALS: RESP 16
[2024-06-16] MEDS ORDERED: NALOXONE 0.4 MG/ML 1 ML VIAL IV PRN (14:52)
[2024-06-16] MEDS ORDERED: HYDROmorphone 1 MG/ML 1 ML SYRINGE IVP PRN (14:58)
[2024-06-16] MEDS ORDERED: DEXTROSE 50% SYRINGE 50 ML IVP PRN ×2 (14:59)
[2024-06-16] MEDS: HYDROmorphone 0.5 MG/0.5 ML SYRINGE IVP PRN (15:11)
[2024-06-16] MEDS: SCOPOLAMINE 1 MG/72 HR PATCH TRANSDERM STA (17:26)
[2024-06-16] MEDS: droPERidol 5 MG/2 ML VIAL IVP ONE (17:26)
[2024-06-16 17:28] LABS: Glucose,Whole Blood 172 mg/dL (70-110)
[2024-06-16] MEDS: ACETAMINOPHEN IV (For NPO) 1,000 MG in EMPTY BAG 1 BAG IVPB SCH (17:34)
[2024-06-16] MEDS: DEXAMETHASONE SOD PHOSPHATE 4 MG/ML 1 ML VIAL IVP SCH (17:34)
[2024-06-16] MEDS: ONDANSETRON 4 MG/2 ML VIAL IVP SCH (17:34)
[2024-06-16] MEDS: DEXAMETHASONE SOD PHOSPHATE 10 MG/ML 1 ML VIAL IVP STA (17:38)
[2024-06-16] MEDS: 0.9% NACL WITH KCL 20 MEQ/L 1,000 ML IV SCH (17:50)
[2024-06-16] MEDS: SODIUM CHLORIDE 0.9% 2,000 ML IV ONE (17:54)
[2024-06-16] MEDS ORDERED: SIMETHICONE 40 MG/0.6 ML DROPS 2,000 MG/30 ML BOTTLE PO SCH (18:00)
[2024-06-16] MEDS: ALBUTEROL NEBULIZED 2.5 MG/3 ML INHALATION SCH (18:24)
[2024-06-16] MEDS: SIMETHICONE 40 MG/0.6 ML DROPS 2,000 MG/30 ML BOTTLE PO SCH (19:02)
[2024-06-16] MEDS: INSULIN ASPART (NovoLOG) 100 UNIT/ML VIAL SQ SCH (19:02)
--- NOTE | 2024-06-16 19:50 | P.OP ---
Date of Procedure: 06/16/24 Description of Procedure: SURGEON: AMAURY THORNTON MD PREOPERATIVE DIAGNOSES: 1. Morbid obesity due to excess calories 2. Body mass index of 41.4 3. Osteoarthritis of the knees. 4. Osteoarthritis of the lower back. 5. Hypertensive heart disease. 6. Gastroesophageal reflux disease 7. Hyperlipidemia 8. Obstructive sleep apnea 9. Diabetes type 2, insulin dependent 10. Depressive disorder POSTOPERATIVE DIAGNOSES: 1. Morbid obesity due to excess calories 2. Body mass index of 41.4 3. Osteoarthritis of the knees. 4. Osteoarthritis of the lower back. 5. Hypertensive heart disease. 6. Gastroesophageal reflux disease 7. Hyperlipidemia 8. Obstructive sleep apnea 9. Diabetes type 2, insulin dependent 10. Depressive disorder OPERATION: 1. Robotic assisted daVinci Xi laparoscopic sleeve gastrectomy with 40-Portuguese bougie, multiport. 2. Intraoperative esophagogastroduodenoscopy. ANESTHESIA: Gen. local anesthetic ESTIMATED BLOOD LOSS: 10 mL SPECIMENS REMOVED: Sleeve gastrectomy COMPLICATIONS: None. FINDINGS: 1. Negative intraoperative esophagogastrojejunoscopy leak test. 2. No hepatomegaly and no large hiatus hernia. 3. Total of 7 staplers used including 1 - 60 mm green, 5 - 60 mm blue robot loads used to create the gastric sleeve. 4. Sleeve gastrectomy, 28 x 6 cm INDICATIONS: Nu Garcia is a 44-year-old female who comes with lifelong morbid obesity. As result of morbid obesity, he has developed hypertensive heart disease, obstructive sleep apnea, hyperlipidemia, osteoarthritis of the hips and knees. He has completed medical supervised weight loss. He completed medical including cardiac assessment. He has completed psychological risk assessment. All surgical options were reviewed. He elected for sleeve gastrectomy At height of 6 feet 1 inches, ideal body weight is 188 pounds. He comes in 324 pounds. His body mass index is 43.9. He is 136 pounds overweight. All surgical options for morbid obesity had been described using the [place] [facility] comorbidity resolution including complication risk score. A second-generation bariatric consent form was described in detail including the possibility of protein malnutrition, leaks, gastric stricture, venous thrombosis, gastroesophageal reflux disease, need for further surgery for which she demonstrated understanding. Benefits and risks of the procedure were described at length. Informed consent was obtained. DESCRIPTION: The patient was brought into the operating room theater. Preoperatively she had received Lovenox subcutaneously for DVT prophylaxis. Additionally she had Peridex oral solution as an oral decontaminant. After general induction, the abdomen was prepped and draped in standard sterile fashion. An Ioban draping was placed along the abdomen. A robotic da Oralia Xi system was prepped and primed. At 15 cm from the xiphoid, proposed port sites were marked with indelible marker along the anterior axillary line bilaterally, mid axillary line bilaterally with each ports were marked 10 to 15 cm from each other. The robotic stapler port was marked for the right midclavicular line. A 5 mm 0 degrees laparoscopic trocar entry was performed along the left upper quadrant. The abdomen was insufflated to 15 mmHg pressure was tolerated well. Diagnostic laparoscopy demonstrated no injury to bowel, viscera, or mesentery. No evidence of large hiatus hernia was identified. The liver edge was slightly thickened due to mild hepatomegaly despite 2-week protein diet. A 8 mm port was placed along the left upper abdominal wall after exchanging the 5 mm port. A separate 8 mm port was placed along the left lateral abdominal wal l. Please note that the ports were placed at least 20 cm away from the target anatomy. Care was taken to check each robotic arms were safely away from collision with the bed or the patient. At the epigastrium, a medium sized Martha liver retractor was placed under direct visualization with the Iron Stone Paver placed under the right shoulder of the patient. Next, 12-mm robot stapler port was placed along the right upper quadrant. The camera 8-mm port was maintained along the epigastrium. The patient was repositioned in reverse Trendelenburg position at 21-degrees after lowering the bed. The robot was docked along the left side of the patient. Using a grasper for arm 4, a vessel sealer for arm 3, including grasper for arm 1, the robotic system was docked and primed as described. Instruments were interchanged by the appeals assistant for stapler loads. The camera was placed at 30- degrees down. I had sat at the console. The pylorus was identified and 6 cm proximally along the greater curvature of the stomach, the short gastrics were mobilized upwards to the angle of His using a vessel sealer. Hemostasis was excellent during this portion of the procedure. Next, the upper pole of the stomach was adherent to the left nicolasa, which was gently dissected free using atraumatic grasper. I went to the head of the bed and placed 40-Portuguese blunt bougie into the stomach. The bougie was readjusted by the nurse kiln fireman. Robotic stapler black load 60 mm 1 followed by green 60 mm x 1, and blue 60 mm loads x 4 were used to create the sleeve. Initial firing was across the antrum of the stomach towards the angle of His. The staple line was linear without corkscrewing. The space from the angularis incisura of the sleeve was approximately 4 cm. I then went to the head of the bed to perform the intraoperative esophagogastroduodenoscopy leak test. The bougie was withdrawn. The upper pole of the stomach was bathed using normal saline solution. The scope was withdrawn with careful inspection along the staple line for which no leaks were found along the entire length. Additionally,the sleeve was completely hemostatic without any encroachment along the angularis incisura. Its topology was a soft "J". No stricture was encountered upon placement of the scope. The GI tract was desufflated. The patient tolerated this portion of the procedure well. The scope was completely withdrawn. The robot was undocked. I then rescrubbed into case, whereby the irrigation fluid was aspirated from the abdominal cavity. Tisseel fibrin sealant was placed along the entire staple length. Once dried the Martha liver retractor was removed. Attention was now brought to removal of the specimen. The distal end of the sleeve gastrectomy specimen was brought out through the 12 mm port at the left upper quadrant. The specimen was gently removed en total. No contamination had occurred during this process. All instruments and pneumoperitoneum including irrigation fluid was removed from the abdominal cavity. The 12 mm port site was closed using 0-Vicryl and Brayden Lopez and irrigated with diluted hydrogen peroxide. The final incisions were closed using subcuticular interrupted suture of 4-0 Monocryl. Exofin was applied to the skin once the skin had been cleansed. OptiFoam dressing was placed along the stomach extraction site. The sleeve specimen was measured and checked also for leaks which none were found. At the end of the procedure, needle, sponge, and instrument count was verified correct by the neurosurgical nurse practitioner. The patient was taken to the postanesthesi care unit in stable condition. The patient had tolerated the procedure well. Intraoperative films and findings were reviewed with the patient's family. Plan - Discharge Summary Discharge Rx Participant: No New Discharge Prescriptions: New bisacodyL [Dulcolax] 5 mg PO DAILY PRN #10 tab PRN Reason: Constipation Simethicone 40 mg/0.6 ml Drops [Mylicon Drops] 40 mg PO PCHS PRN #30 ml PRN Reason: Gas Omeprazole [PriLOSEC] 40 mg PO DAILY #30 cap Acetaminophen Tab [Tylenol Tab] 1,000 mg PO Q6HR PRN #30 tablet PRN Reason: Pain Ondansetron Odt [Zofran Odt] 4 mg PO Q8HR PRN #9 tab PRN Reason: Nausea Continue DULoxetine HCL [Cymbalta] 90 mg PO DAILY ALPRAZolam [Xanax] 0.25 mg PO BID PRN PRN Reason: Anxiety Empagliflozin [Jardiance] 25 mg PO DAILY metFORMIN HCL 500 mg PO BID Cyclobenzaprine [Flexeril] 5 mg PO TID PRN PRN Reason: Pain Discontinued sitaGLIPtin [Januvia] 100 mg PO DAILY Omeprazole [PriLOSEC] 20 mg PO DAILY Insulin Glargine,Hum.rec.anlog [Lantus Solostar Pen] 50 unit SQ HS cloNIDine HCL [Catapres] 0.1 mg PO DAILY PRN PRN Reason: Anxiety Lisinopril-Hctz 10-12.5 mg [Zestoretic 10-12.5] 1 tab PO DAILY Atorvastatin [Lipitor] 20 mg PO DAILY Discharge Medication List DULoxetine HCL [Cymbalta] 90 mg PO DAILY 10/25/22 [History] metFORMIN HCL 500 mg PO BID 10/25/22 [History] ALPRAZolam [Xanax] 0.25 mg PO BID PRN 01/17/23 [History] Cyclobenzaprine [Flexeril] 5 mg PO TID PRN 01/17/23 [History] Empagliflozin [Jardiance] 25 mg PO DAILY 02/26/24 [History] Acetaminophen Tab [Tylenol Tab] 1,000 mg PO Q6HR PRN #30 tablet 06/16/24 [Rx] Omeprazole [PriLOSEC] 40 mg PO DAILY #30 cap 06/16/24 [Rx] Ondansetron Odt [Zofran Odt] 4 mg PO Q8HR PRN #9 tab 06/16/24 [Rx] Simethicone 40 mg/0.6 ml Drops [Mylicon Drops] 40 mg PO PCHS PRN #30 ml 06/16/24 [Rx] bisacodyL [Dulcolax] 5 mg PO DAILY PRN #10 tab 06/16/24 [Rx] Follow up [facility]ment(s[facility]Ref[facility] [place] [facility] - [facility]/18/24 9:30 am Patient Instructions/Handouts: Nutrition after Bariatric Surgery (GEN), Laparoscopic Sleeve Gastrectomy (DC), Deep Vein Thrombosis Prevention (GEN) Activity/Diet/Wound Care/Special Instructions: NO LONG DRIVES OR AIRPLANE RIDES OVER 1 hr FOR THE NEXT 2 WEEKS, Jun 30, DUE TO HIGH RISK OF PULMONARY EMBOLISM/DVTs ALWAYS KEEP MOVING YOUR FEET except for sleeping. Liquid diet only for 2 weeks until Jun 30 May Shower. No soaking in bath tubs 2 weeks until Jun 30 Continue to use incentive spirometry to prevent pneumonias. Please continue to ambulate at home to prevent blood clots in legs. Please notify your surgeon if you develop nausea and vomiting including new onset of abdominal pain. No lifting over 4 pounds in 4 weeks, Jul 16 Drink 64 oz of fluid daily. Start protein shakes on . Notify bariatric center for temp over 101.0, increased pain, drainage from incisions. No straws or carbonated beverages. Liquid diet only. Sugar content should be less than 6 g to avoid dumping syndrome. Take MOM for constipation. CRUSH, OPEN, OR CUT TABLETS LARGER THAN A SIZE OF A TIC TAC Discharge Disposition: HOME SELF-CARE
[2024-06-16 20:08] VITALS: BP 138/83; PULSE 82; TEMP 97.4
[2024-06-16] MEDS ORDERED: PANTOPRAZOLE 40 MG/10 ML VIAL IVP SCH (21:00)
[2024-06-17] MEDS ORDERED: 0.9% NACL WITH KCL 20 MEQ/L 1,000 ML IV SCH (08:00)
[2024-06-17] MEDS ORDERED: ENOXAPARIN 40 MG/0.4 ML SYRINGE SQ SCH (09:00)
== END 2024-06-16 20:08 | disposition home or self-care (01) | DRG 403 ==
LOC: 2ORMAIN 08:25 → 4SSUR 16:52
PROVIDERS: ADMIT Surgery Plastic and Reconstructive Surgery; ATTEND Surgery Plastic and Reconstructive Surgery
PROC: 8E0W4CZ Robotic Assisted Procedure of Trunk Region, Percutaneous Endoscopic Approach (ICD-10-PCS; 2024-06-16)
PROC: 0DB64Z3 Excision of Stomach, Percutaneous Endoscopic Approach, Vertical (ICD-10-PCS; principal; 2024-06-16 11:00)
DX: E66.01 Morbid (severe) obesity due to excess calories (principal); I11.9 Hypertensive heart disease without heart failure; E11.9 Type 2 diabetes mellitus without complications; Z68.41 Body mass index [BMI] 40.0-44.9, adult; F31.9 Bipolar disorder, unspecified; Z79.4 Long term (current) use of insulin; R16.0 Hepatomegaly, not elsewhere classified; M17.0 Bilateral primary osteoarthritis of knee; M47.816 Spondylosis without myelopathy or radiculopathy, lumbar region; M16.0 Bilateral primary osteoarthritis of hip; K21.9 Gastro-esophageal reflux disease without esophagitis; E78.5 Hyperlipidemia, unspecified; G47.33 Obstructive sleep apnea (adult) (pediatric); Z87.891 Personal history of nicotine dependence; Z85.41 Personal history of malignant neoplasm of cervix uteri; Z79.84 Long term (current) use of oral hypoglycemic drugs; Z79.899 Other long term (current) drug therapy
CPT/HCPCS: 88307

== ENCOUNTER → 2024-06-20 | Outpatient (CLI) | payer OTHER ==
--- NOTE | 2024-06-20 09:54 | FL ---
EXAMINATION TYPE: FL barium swallow DATE OF EXAM: 06/20/2024 8:36 AM COMPARISON: . None CLINICAL INDICATION:Female, 44 years old with history of R13.10 DYSPHAGIA; PHH, TECHNIQUE: The procedure was explained and patient history elicited. All patient questions were ans wered prior to start of procedure. Multiple spot fluoroscopic images of the esophagus and stomach wer e obtained after the oral ingestion of Isovue contrast agent. Fluoroscopic time:13 sec Fluoroscopic images:0 Radiographs taken: 55 DAP: Not reported [id number] FINDINGS: Postsurgical changes to the gastric lumen. No evidence for extravasation of contrast. No evidence for obstruction. IMPRESSION: No evidence for extravasation of contrast or obstruction. [facility], , 06/20/2024 9:51 AM
== END | disposition home or self-care (01) ==
LOC: RADFLMAIN 07:55
PROVIDERS: ATTEND Surgery Plastic and Reconstructive Surgery
DX: R13.10 Dysphagia, unspecified (principal)
CPT/HCPCS: 74220; Q9967

== ENCOUNTER → 2024-06-20 | Outpatient (CLI) | payer OTHER ==
[2024-06-20 10:36] VITALS: BP 127/85; PULSE 88; RESP 15; TEMP 98.7; BMI 39.2
--- NOTE | 2024-06-20 11:10 | P.BASOAP ---
Subjective Progress Note Date: 06/20/24 Patient remarkably well. Blood sugars 10 9-1 17. She is only taken metformin. She is off all other diabetic medications including Jardiance and insulin. Patient does report home social issues with her which is adding additional stress or recovery. She is drinking more than 64 ounces of fluids daily. No signs of dehydration. Esophagram independent review demonstrate no signs of leak or obstruction. Close follow-up outpatient next week. Patient was happy with the overall recovery and 24-hour our last same-day discharge. Abdomen without infection. Objective - Vital Signs Vital signs: Vital Signs Temp 98.7 F 06/20/24 10:27 Pulse 88 06/20/24 10:27 Resp 15 06/20/24 10:27 BP 127/85 06/20/24 10:27 Pulse Ox FiO2 Intake & Output 06/19/24 06/20/24 06/20/24 18:59 06:59 18:59 Weight 118.796 kg Assessment/Plan Plan: Date: 06/20/24 Initial Weight: 129.983 kg Initial BMI: 42.9 Current Weight: 118.796 kg Current BMI: 39.2 Type of Surgery: Total Volume in Band: Previous Volume: Volume Removed: Volume Added: Band Size:
== END ==
LOC: BARWHC3 08:29
PROVIDERS: ATTEND Surgery Plastic and Reconstructive Surgery
DX: E66.01 Morbid (severe) obesity due to excess calories (principal); Z88.0 Allergy status to penicillin; Z68.39 Body mass index [BMI] 39.0-39.9, adult
CPT/HCPCS: 99211

== ENCOUNTER → 2024-06-25 | Outpatient (CLI) | payer OTHER ==
[2024-06-25 14:20] VITALS: BP 129/83; PULSE 106; RESP 16; TEMP 98.2; BMI 38.7
--- NOTE | 2024-06-25 14:38 | P.BASOAP ---
Subjective Progress Note Date: 06/25/24 She has family members with fluids. She is doing well. No infection. She has fantastic support. Follow up in 1 month. Objective - Vital Signs Vital signs: Vital Signs Temp 98.2 F 06/25/24 14:15 Pulse 106 H 06/25/24 14:15 Resp 16 06/25/24 14:15 BP 129/83 06/25/24 14:15 Pulse Ox FiO2 Intake & Output 06/24/24 06/25/24 06/25/24 18:59 06:59 18:59 Weight 117.48 kg Assessment/Plan Plan: Date: 06/25/24 Initial Weight: 129.983 kg Initial BMI: 42.9 Current Weight: 117.48 kg Current BMI: 38.7 Type of Surgery: Total Volume in Band: Previous Volume: Volume Removed: Volume Added: Band Size:
== END | disposition home or self-care (01) ==
LOC: BARWHC3 13:37
PROVIDERS: ATTEND Surgery Plastic and Reconstructive Surgery
DX: E66.01 Morbid (severe) obesity due to excess calories (principal); Z88.0 Allergy status to penicillin; Z68.38 Body mass index [BMI] 38.0-38.9, adult
CPT/HCPCS: 97802; G0463; 99211

== ENCOUNTER → 2024-07-16 | Outpatient (CLI) | payer OTHER ==
[2024-07-16 13:41] VITALS: BP 126/73; RESP 16; TEMP 98.4; BMI 37.8
--- NOTE | 2024-07-16 14:23 | P.BASOAP ---
Subjective Progress Note Date: 07/16/24 She lost 25 pounds in 1 month. She has elevated heart rate after speaking to her mother in law. SHe has adequate. No heartburn or pain. No abdominal pain. She is avoiding stress. She is drinking fluids. She is off insulin and has excellent blood sugar 98. Get labs today. Risks of abdominal pain. Continue omeprazole. Objective - Vital Signs Vital signs: Vital Signs Temp 98.4 F 07/16/24 13:35 Pulse 102 H 07/16/24 13:35 Resp 16 07/16/24 13:35 BP 126/73 07/16/24 13:35 Pulse Ox FiO2 Intake & Output 07/15/24 07/16/24 07/16/24 18:59 06:59 18:59 Weight 114.305 kg Assessment/Plan Plan: Date: 07/16/24 Initial Weight: 129.983 kg Initial BMI: 42.9 Current Weight: 114.305 kg Current BMI: 37.8 Type of Surgery: Total Volume in Band: Previous Volume: Volume Removed: Volume Added: Band Size:
[2024-07-16 14:32] VITALS: PULSE 80
[2024-07-16 16:21] LABS: Partial Thromboplastin Time 26.9 sec (22.0-30.0); Prothrombin Time 10.8 sec (10.0-12.5)
[2024-07-16 19:21] LABS: HCT 44.3 % (37.2-46.3); MCH 27.1 pg (27.0-32.0); MCHC 31.6 g/dL (32.0-37.0); MCV 85.7 FL (80.0-97.0); Mean Platelet Volume 11.7 FL (9.5-12.2); NRBC Per 100 WBC 0 X 10*3/uL (0.00-0.01); Platelet Count 388 X 10*3/uL (140-440); RBC 5.17 X 10*6/uL (4.10-5.20); RDW 15.5 % (11.5-14.5); WBC 11.24 X 10*3/uL (4.50-10.00)
[2024-07-16 21:14] LABS: Chol/HDL Ratio 5.09 Ratio
[2024-07-16 21:15] LABS: ALT 45 U/L (8-44); AST 17 U/L (13-35); Albumin 4.4 g/dL (3.8-4.9); Albumin/Globulin Ratio 1.69 Ratio (1.60-3.17); Alkaline Phosphatase 126 U/L (41-126); Blood Urea Nitrogen 16.1 mg/dL (9.0-27.0); Calcium 9.9 mg/dL (8.7-10.3); Carbon Dioxide 22.7 mmol/L (21.6-31.8); Chloride 104 mmol/L (96-109); Globulin 2.6 g/dL (1.6-3.3); Glucose 99 mg/dL (70-110); LDL Cholesterol,Calculated 122.1 mg/dL (0.0-131.0); Phosphorus 3.4 mg/dL (2.4-5.1); Sodium 140 mmol/L (135-145); Total Bilirubin 0.5 mg/dL (0.3-1.2)
[2024-07-16 21:57] LABS: % Iron Saturation 10.47 (12.00-45.00); Ferritin 62.7 ng/mL (10.0-291.0); Iron 38 UG/DL (50-170); Total Iron Binding Capacity 363 UG/DL (228-460)
[2024-07-16 22:18] LABS: Prealbumin 23.5 mg/dL (18.0-42.0)
[2024-07-17 11:51] LABS: Zinc, Serum 87 ug/dL (60-130)
[2024-07-18 05:56] LABS: Vit B1(Thiamine) 68 ug/L (38-122)
[2024-07-18 12:03] LABS: Vitamin A 55 ug/dL (38-106)
[2024-07-28 19:42] LABS: Selenium 115 mcg/L (63-160)
== END ==
LOC: BARWHC3 13:02
PROVIDERS: ATTEND Surgery Plastic and Reconstructive Surgery
DX: E66.01 Morbid (severe) obesity due to excess calories (principal); Z71.3 Dietary counseling and surveillance; Z68.37 Body mass index [BMI] 37.0-37.9, adult; Z88.0 Allergy status to penicillin
CPT/HCPCS: 84255; 84134; 84425; 80061; 80053; 82607; 82728; 82525; 82746; 83540; 83550; 83735; 84100; 84443; 84590; 84630; 85027; 85610; 85730; 82306; 83970; 83036; 97803; G0463; 99211

== ENCOUNTER → 2024-10-15 | Outpatient (CLI) | payer OTHER ==
[2024-10-15 14:24] VITALS: BP 132/84; PULSE 108; RESP 16; TEMP 98.4; BMI 33.8
--- NOTE | 2024-10-15 14:48 | P.BASOAP ---
Subjective Progress Note Date: 10/15/24 DATE: 10/15/24 CHIEF COMPLAINT: Morbid obesity HISTORY OF PRESENT ILLNESS: Valdez Garcia is a 44-year-old female status post sleeve gastrectomy 06/16/2024. She is 4 months postop. Here highest weight is 330 pounds. She is down 226 pounds. She tracks what she eats. She lost 100+ pounds. She is off medications including her blood pressure medication, cholesterol medications, and diabetic medications. She denies heart burn. She rarely takes prilosec. She avoids overly sugary foods. No carbonated beverages. She report nothing gets stuck. Her protein daily intake is 80 grams daily with diet. She denies troubles. She wants to lose more weight. Her mood is better. She does not smoke nicotine but does marijuana. She does the walking treadmill. At height of 5 feet 8.5 inches, her ideal body weight is 163 pounds. Her highest weight is 330 pounds. Her body mass index was 49.5. She comes in 226 pounds from 252 pounds. She has lost 26 pounds in 3 months. Her lifetime weight loss is 103 pounds. Her percent excess weight loss is 62%. She is 63 pounds overweight. Her body mass index is 33.9. PAST MEDICAL HISTORY: 1. Morbid obesity due to excess calories 2. Body mass index of 49.5 3. Osteoarthritis of the knees. 4. Osteoarthritis of the lower back. 5. Hypertensive heart disease. 6. Gastroesophageal reflux disease 7. Hyperlipidemia 8. Obstructive sleep apnea 9. Diabetes type 2, insulin dependent 10. Depressive disorder 11. Generalized anxiety disorder PAST SURGICAL HISTORY: 1. Cholecystectomy 2. Hysterectomy 3. Lysis of adhesions 4. Bilateral carpal tunnel release 5. Colonoscopy 6. Upper endoscopy 7. Status post sleeve gastrectomy HOME MEDICATIONS: Home Medications Medication Instructions Recorded Confirmed DULoxetine HCL [Cymbalta] 90 mg PO DAILY 10/25/22 10/15/24 ALPRAZolam [Xanax] 0.25 mg PO BID PRN 01/17/23 10/15/24 Cholecalciferol [Vitamin D3 (25 1 tab PO DAILY 10/15/24 10/15/24 Mcg = 1000 Iu)] Ferrous Sulfate [Slow Fe] 1 tab PO DAILY 10/15/24 10/15/24 Multivitamins, Thera [Multivitamin 1 tab PO DAILY 10/15/24 10/15/24 (formulary)] Previous Rx's Medication Instructions Recorded Acetaminophen Tab [Tylenol Tab] 1,000 mg PO Q6HR PRN #30 tablet 06/16/24 Omeprazole [PriLOSEC] 40 mg PO DAILY #90 cap 07/16/24 ALLERGIES: Allergies Allergy/AdvReac Type Severity Reaction Status Date / Time Penicillins Allergy Rash/Hives Verified 10/15/24 14:17 SOCIAL HISTORY: Past tobacco use. FAMILY HISTORY: No family history of ulcerative colitis disease or Crohn's disease. Family history of morbid obesity. No lupus in the family. No reports of stomach or esophageal cancer. REVIEW OF ORGAN SYSTEMS: CONSTITUTIONAL: At height of 5 feet 8.5 inches, her ideal body weight is 163 pounds. Her highest weight is 330 pounds. Her body mass index was 49.5. She comes in 226 pounds from 252 pounds. She has lost 26 pounds in 3 months. Her lifetime weight loss is 103 pounds. Her percent excess weight loss is 62%. She is 63 pounds overweight. Her body mass index is 33.9. ENDOCRINE: Has diabetes resolved. Denies hypothyroidism. CARDIOVASCULAR: Past reports of palpitations or heart attacks or chest pain. RESPIRATORY: Has daytime somnolence. GASTROINTESTINAL: Denies any bright red blood per rectum. Has gastroesophageal reflux disease. MUSCULOSKELETAL: Has lower back pain and joint pain. Has osteoarthritis of the knees. NEURO: No headaches. No seizure disorders. PSYCH: Has depression. No suicidal ideation. RHEUMATOLOGIC: No lupus. No rheumatoid arthritis. HEMATOLOGIC: Denies any abnormal bleeding or bruising. No personal history of DVTs. SKIN: Has rash. No skin cancer. PHYSICAL EXAM: VITAL SIGNS: Height 5 foot 8.5 inches, weight 226 pounds. BMI 33.9 Vital Signs Temp 98.4 F 10/15/24 14:20 Pulse 108 H 10/15/24 14:20 Resp 16 10/15/24 14:20 BP 132/84 10/15/24 14:20 Pulse Ox FiO2 GENERAL: Well-developed in no acute distress. HEENT: No scleral icterus. Extraocular movements grossly intact. Hears conversational speech. No nasal drainage. NECK: Supple without lymphadenopathy. CHEST: Nonlabored respirations with equal bilateral excursions. CARDIOVASCULAR: Regular rate and regular rhythm. Distal 2+ pulses. ABDOMEN: Obese, soft, nontender, nondistended. Incisions granulated. No hernia. MUSCULOSKELETAL: No clubbing, cyanosis. NEURO: No focal or lateralizing signs. Cranial nerves 2 through 12 grossly within normal limits. PSYCH: Appropriate affect. Alert and oriented to person, place and time. SKIN: Good skin turgor. Well perfused. LABS: Reviewed from June 2024. WBC was elevated. Hemoglobin A1c was 6.2%, elevated. Vitamin D low. Folate low. ASSESSMENT: 1. Morbid obesity due to excess calories 2. Body mass index of 49.5 to 41.4 3. Osteoarthritis of the knees. 4. Osteoarthritis of the lower back. 5. Hypertensive heart disease. 6. Gastroesophageal reflux disease 7. Hyperlipidemia 8. Obstructive sleep apnea 9. Diabetes type 2, insulin dependent, now resolved 10. Depressive disorder 11. Status post gastric bypass 12. Vitamin D deficiency 13. Folate deficiency PLAN: 1. Recommend bariatric labs 2. Upper endoscopy as needed for anastomotic dilation. 3. Recommend vitamin D 50,000 units weekly 4. Recommend folate 1000 mcg daily Objective - Vital Signs Vital signs: Vital Signs Temp 98.4 F 10/15/24 14:20 Pulse 108 H 10/15/24 14:20 Resp 16 10/15/24 14:20 BP 132/84 10/15/24 14:20 Pulse Ox FiO2 Intake & Output 10/14/24 10/15/24 10/15/24 18:59 06:59 18:59 Weight 102.512 kg Assessment/Plan Plan: Date: 10/15/24 Initial Weight: 129.983 kg Initial BMI: 42.9 Current Weight: 102.512 kg Current BMI: 33.8 Type of Surgery: Total Volume in Band: Previous Volume: Volume Removed: Volume Added: Band Size:
== END ==
LOC: BARWHC3 13:47
PROVIDERS: ATTEND Surgery Plastic and Reconstructive Surgery
DX: E66.01 Morbid (severe) obesity due to excess calories (principal); I11.9 Hypertensive heart disease without heart failure; K21.9 Gastro-esophageal reflux disease without esophagitis; E78.5 Hyperlipidemia, unspecified; G47.33 Obstructive sleep apnea (adult) (pediatric); E11.9 Type 2 diabetes mellitus without complications; F32.9 Major depressive disorder, single episode, unspecified; E55.9 Vitamin D deficiency, unspecified; M17.0 Bilateral primary osteoarthritis of knee; M47.816 Spondylosis without myelopathy or radiculopathy, lumbar region; E53.8 Deficiency of other specified B group vitamins; Z68.42 Body mass index [BMI] 45.0-49.9, adult; Z98.84 Bariatric surgery status; Z88.0 Allergy status to penicillin
CPT/HCPCS: 97803; G0463; 99211

== ENCOUNTER → 2025-03-11 | Outpatient (CLI) | payer OTHER ==
[2025-03-11 14:31] VITALS: BP 105/73; PULSE 91; RESP 16; TEMP 98.3; BMI 33.7
--- NOTE | 2025-03-11 15:22 | P.BASOAP ---
Subjective Progress Note Date: 03/11/25 She reports family stressors. She reports weight loss stall. She is looking into lose weight. Holding everything as many as a panic attack and that panic attack triggers his body seizures as well as releasing all of his extra emotions and energy. She lost 50 pounds. She has a lot of social stressors. She writes down her meals. She cut out pork because of sodium. She is taking vitamins, antidepressants and omeprazole. No fatigue. Pain with not eating. NO blood in stools. Occasional constipation. Has no feeling of this get stuck. FLuids daily is over 100 oxz. If you do this right you can average anywhere between 5 I personally lost 11 pounds in 1 week just by doing that after okay which should you have a target in mind okay will we yeah just barely 40 pounds and wants to get 180 pounds in April. MyFitness pal. Target 100 grams. under 100 g crabs. Objective - Vital Signs Vital signs: Vital Signs Temp 98.3 F 03/11/25 14:28 Pulse 91 03/11/25 14:28 Resp 16 03/11/25 14:28 BP 105/73 03/11/25 14:28 Pulse Ox FiO2 Intake & Output 03/10/25 03/11/25 03/11/25 18:59 06:59 18:59 Weight 102.058 kg Assessment/Plan Plan: Date: 03/11/25 Initial Weight: 129.983 kg Initial BMI: 42.9 Current Weight: 102.058 kg Current BMI: 33.7 Type of Surgery: Total Volume in Band: Previous Volume: Volume Removed: Volume Added: Band Size:
== END ==
LOC: BARWHC3 13:46
PROVIDERS: ATTEND Surgery Plastic and Reconstructive Surgery
DX: E66.01 Morbid (severe) obesity due to excess calories (principal); Z88.0 Allergy status to penicillin; Z68.33 Body mass index [BMI] 33.0-33.9, adult
CPT/HCPCS: 99211